=== PATIENT | female | born 1970 | race Caucasian/White ===

== ENCOUNTER 2024-03-01 08:38 | Outpatient (AMB) | payer OTHER, SELFPAY ==
--- NOTE | 2024-03-01 08:44 | MHC.PC.OV ---
Vital Signs 03/01/24 08:54 Height 4 ft 10.74 in Weight 145 lb 6 oz BMI 29.6 BP 98/62 Blood Pressure Location Lt brachial Position Sitting Respiration 14 Pulse 70 Pulse Source Pulse Oximeter Temp 98.1 F Temp Source Oral Pulse Oximetry (%) 95 Oxygen Delivery Method Room Air Intake Visit Reasons: Establish Care transfer from [facility] Intake Note: New patient visit Medication List - Last Reconciled 03/01/24 by Kerri Mcrae MD pravastatin 20 mg PO DAILY Tobacco use date assessed: 03/01/24 Dental Screening Dental Screen Date: 03/01/24 Did you have a dental visit in the last 12 months?: Yes Did you have a dental problem in the last 6 months where you did not have access to dental care?: No Was dental information given to patient?: Patient has dentist HPI HPI Comments History of Present Illness Details This is a 53 year old female with a past medical history of back pain, hyperlipidemia, prediabetes, seasonal allergies presenting for follow up CV: On pravastatin. Huge improvement in LDL on med, now 144. No chest pain, exertional dyspnea Prediabetes: Last A1C 5.9%. Mammo UTD-[place], thinks she is almost due Colonoscopy 2 years ago ROS CONSTITUTIONAL: Denies weight loss, fever and chills. HEENT: Denies changes in vision and hearing. RESPIRATORY: Denies SOB and cough. CV: Denies palpitations and CP GI: Denies abdominal pain, nausea, vomiting and diarrhea. : Denies dysuria and urinary frequency. MSK: Denies new myalgia and joint pain. SKIN: Denies rash and pruritus. NEUROLOGICAL: Denies headache PSYCHIATRIC: Denies recent changes in mood. PHYSICAL EXAM: GENERAL: Alert and oriented x 3. NAD EYES: EOMI. Anicteric. HENT: Moist mucous membranes. No scleral icterus. No cervical lymphadenopathy. LUNGS: Clear to auscultation bilaterally. CARDIOVASCULAR: Regular rate and rhythm. No murmur. No JVD. ABDOMEN: Soft, non-tender +bs EXTREMITIES: No edema. Non-tender. SKIN: No rashes or lesions. Warm. NEUROLOGIC: No focal neurological deficits. CN II-XII grossly intact PSYCHIATRIC: Cooperative. Appropriate mood and affect [facility] Medical History (Updated 03/01/24 @ 09:39 by Kerri Mcrae MD) History of mammogram Seasonal allergies Menopausal problem Low back pain High blood cholesterol Fatigue Elevated glucose Bilateral wrist pain Arthritis Surgical History (Updated 03/01/24 @ 08:50 by Bernadine Clements CMA) H/O tubal ligation H/O colonoscopy Family History (Updated 03/01/24 @ 08:59 by Bernadine Clements CMA) Mother Diabetes Hypercholesteremia Father Prostate cancer Cancer of stomach Pancreatic cancer Social History (Updated 03/01/24 @ 08:57 by Bernadine Clements CMA) Housing: House Patient Tobacco Use Status: Former Tobacco user Years Smoked: Highschool years e-Cigarette/Vaping Use: Never Used Second Hand Smoke Exposure: No service: No Current occupational status: employed 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 1. Little interest or pleasure in doing things: not at all 2. Feeling down, depressed, or hopeless: not at all 3. Trouble falling or staying asleep, or sleeping too much: not at all 4. Feeling tired or having little energy: several days 5. Poor appetite or overeating: not at all 6. Feeling bad about yourself - or that you are a failure or have let yourself or your family down: not at all 7. Trouble concentrating on things, such as reading the newspaper or watching television: not at all 8. Moving or speaking so slowly that other people could have noticed. Or the opposite - being so fidgety or restless that you have been moving around a lot more than usual: not at all 9. Thoughts that you would be better off or of hurting yourself in some way: not at all Total score: 1 Depression Screening Interpretation: Negative Depression Screening Done: Yes 28316 - PHQ-9 Billing: Yes Source: Developed by Drs. Mega Singleton, Sonia Knowles, Jadiel Harrington and colleagues, with an educational christiano from [employer]. AUDIT C Alcohol Use Questionnaire (AUDIT-C) 1. How often do you have a drink containing alcohol?: 2-3 times a week 2. How many drinks containing alcohol do you have on a typical day when you are drinking?: 1 or 2 3. How often do you have six or more drinks on one occasion?: Never Total Score: 3 Physical exam (Primary Care) Vital Signs: Last Vital Signs Temp 98.1 F 03/01/24 08:54 Pulse 70 03/01/24 08:54 Resp 14 03/01/24 08:54 BP 98/62 03/01/24 08:54 Pulse Ox 95 03/01/24 08:54 Oxygen Delivery Method Room Air 03/01/24 08:54 BMI result Body Mass Index 29.6 Tobacco/Smoking Status: Tobacco use Status Tobacco use date assessed 03/01/24 03/01/24 09:00 Patient Tobacco Use Status Former Tobacco user 03/01/24 09:00 e-Cigarette/Vaping Use Never Used 03/01/24 09:00 Depression Screening Interpretation: Negative Assessment and Plan Assessment & Plan (1) Elevated glucose: Code(s): R73.09 - Other abnormal glucose Plan: Monitor labs. (2) High blood cholesterol: Code(s): E78.00 - Pure hypercholesterolemia, unspecified Plan: Much improved LDL. Will keep statin at current dose. Continue pravastatin (3) Low back pain: Code(s): M54.50 - Low back pain, unspecified Qualifiers: Chronicity: chronic Back pain laterality: bilateral Sciatica presence: unspecified whether sciatica present Qualified Code(s): M54.50 - Low back pain, unspecified; G89.29 - Other chronic pain (4) Arthritis: Code(s): M19.90 - Unspecified osteoarthritis, unspecified site (5) Gallbladder polyp: Code(s): K82.4 - Cholesterolosis of gallbladder Plan: u/s ordered for follow up Orders: Orders US abdomen limited Today K82.4 - Cholesterolosis of gallbladder MM screening mammo BI Today Z12.31 - Encounter for screening mammogram for malignant neoplasm of breast Coding Level of Care Code Tele Est Pt Level 4 (52066) Complex EM visit Add On G2211 Diagnoses Elevated glucose R73.09 High blood cholesterol E78.00 Chronic bilateral low back pain, unspecified whether sciatica present M54.50; G89.29 Chronicity: chronic Back pain laterality: bilateral Sciatica presence: unspecified whether sciatica present Arthritis M19.90 Gallbladder polyp K82.4
[2024-03-01 08:54] VITALS: BP 98/62; PULSE 70; RESP 14; TEMP 36.7; O2SAT 95; BMI 29.6
== END 2024-03-01 09:36 | disposition home or self-care (01) ==
PROVIDERS: Visit Provider Internal Medicine
DX: R73.09 Other abnormal glucose (principal); E78.00 Pure hypercholesterolemia, unspecified; M54.50 Low back pain, unspecified; G89.29 Other chronic pain; M19.90 Unspecified osteoarthritis, unspecified site; K82.4 Cholesterolosis of gallbladder
CPT/HCPCS: 99214; G2211

== ENCOUNTER 2024-05-24 08:55 | Outpatient (REF) | payer OTHER, SELFPAY ==
--- NOTE | ~2024-05-24 | US_ITS ---
EXAMINATION: US ABDOMEN LIMITED CLINICAL INFORMATION: Cholesterolosis of gallbladder. COMPARISON: None available. TECHNIQUE: Real-time imaging of the right upper quadrant abdominal viscera. FINDINGS: PANCREAS: Pancreatic echotexture is heterogeneous. No focal mass or ductal dilatation is seen. There is no peripancreatic fluid collection. LIVER: There is hepatomegaly, with a longitudinal span of 19.4 cm. The liver contour is normal. There is diffuse increased liver parenchymal echogenicity, with pericholecystic sparing. No focal hepatic lesion. There is no intrahepatic biliary duct dilatation seen. GALLBLADDER: Normal. The gallbladder is physiologically distended without evidence of stones, sludge, polyps, wall thickening or pericholecystic fluid. COMMON BILE DUCT: Normal in caliber measuring 0.5 cm in diameter. RIGHT KIDNEY: Normal. No hydronephrosis. No renal calculi or focal parenchymal lesions. The kidney measures 11.6 cm in maximum dimension. FREE FLUID: None. US/US abdomen limited IMPRESSION: 1. There is hepatomegaly. 2. There is generalized increase in hepatic echotexture, consistent with fatty infiltration or hepatocellular disease. Please correlate clinically. Characteristic pericholecystic sparing favors fatty infiltration. No focal hepatic mass or intrahepatic biliary dilatation is seen. Electronically signed by: Arjun Porter MD 05/27/2024 01:46 PM EDT
== END 2024-05-24 08:56 | disposition home or self-care (01) ==
LOC: HO.US 08:55
PROVIDERS: PCP Internal Medicine; Visit Provider Internal Medicine
DX: K82.4 Cholesterolosis of gallbladder (principal)
CPT/HCPCS: 76705

== ENCOUNTER 2024-09-17 13:59 | Outpatient (AMB) | payer OTHER, SELFPAY ==
--- NOTE | 2024-09-17 14:07 | A.OFFPC_ITS ---
Vital Signs 09/17/24 14:11 Height 4 ft 10.74 in Weight 146 lb 6 oz BMI 29.8 BP 106/68 Blood Pressure Location Rt brachial Position Sitting Pulse 76 Pulse Source Pulse Oximeter Pulse Oximetry (%) 96 Oxygen Delivery Method Room Air Intake Visit Reasons: annual Intake Note: Physical Family Life Counselor Required: No Allergies No Known Allergies Allergy (Verified 09/17/24 14:11) Tobacco use date assessed: 09/17/24 Dental Screening Dental Screen Date: 03/01/24 HPI HPI Comments History of Present Illness Details This is a 54 year old female with a past medical history of back pain, hyperlipidemia, prediabetes, seasonal allergies presenting for annual exam CV: On pravastatin. No chest pain, exertional dyspnea Prediabetes: Last A1C 5.9%. Mammo UTD-Fall 2023 Colonoscopy 3 years ago Flu vaccine-declines ROS CONSTITUTIONAL: Denies weight loss, fever and chills. HEENT: Denies changes in vision and hearing. RESPIRATORY: Denies SOB and cough. CV: Denies palpitations and CP GI: Denies abdominal pain, nausea, vomiting and diarrhea. : Denies dysuria and urinary frequency. MSK: Denies new myalgia and joint pain. SKIN: Denies rash and pruritus. NEUROLOGICAL: Denies headache PSYCHIATRIC: Denies recent changes in mood. PHYSICAL EXAM: GENERAL: Alert and oriented x 3. NAD EYES: EOMI. Anicteric. HENT: Moist mucous membranes. No scleral icterus. No cervical lymphadenopathy. LUNGS: Clear to auscultation bilaterally. CARDIOVASCULAR: Regular rate and rhythm. No murmur. No JVD. ABDOMEN: Soft, non-tender +bs EXTREMITIES: No edema. Non-tender. SKIN: No rashes or lesions. Warm. NEUROLOGIC: No focal neurological deficits. CN II-XII grossly intact PSYCHIATRIC: Cooperative. Appropriate mood and affect [facility] Medical History History of mammogram Seasonal allergies Menopausal problem Low back pain High blood cholesterol Fatigue Elevated glucose Bilateral wrist pain Arthritis Surgical History H/O tubal ligation H/O colonoscopy Family History Mother Diabetes Hypercholesteremia Father Prostate cancer Cancer of stomach Pancreatic cancer Social History Housing: House Alcohol intake: former Comment: quit one month ago Patient Tobacco Use Status: Former Tobacco user Years Smoked: Highschool years e-Cigarette/Vaping Use: Never Used Second Hand Smoke Exposure: No service: No Current occupational status: employed 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, 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 Current occupational exposures/hazards: Yes (Hair chemicals) Cognitive needs: No Hearing needs: No Vision needs: No Physical exam (Primary Care) Vital Signs: Last Vital Signs Pulse 76 09/17/24 14:11 BP 106/68 09/17/24 14:11 Pulse Ox 96 09/17/24 14:11 Oxygen Delivery Method Room Air 09/17/24 14:11 BMI result Body Mass Index 29.8 Tobacco/Smoking Status: Tobacco use Status Tobacco use date assessed 09/17/24 09/17/24 14:15 Patient Tobacco Use Status Former Tobacco user 09/17/24 14:15 e-Cigarette/Vaping Use Never Used 09/17/24 14:15 Coding Level of Care Code Est Pt Prev Care 40-64y(01083) Diagnoses Physical exam Z00.00 Hepatic steatosis K76.0 Elevated glucose R73.09 Assessment & Plan Assessment & Plan (1) Physical exam: Code(s): Z00.00 - Encounter for general adult medical examination without abnormal findings Category: Medical Plan: Preventive measures for age discussed Past medical, surgical, social history, chronic conditions reviewed (2) Hepatic steatosis: Code(s): K76.0 - Fatty (change of) liver, not elsewhere classified Category: Medical Plan: referral is pending to gastroenterology (3) Elevated glucose: Code(s): R73.09 - Other abnormal glucose Category: Medical Plan: Monitor A1C. Pursuing diet and exercise. Orders: Orders Comprehensive Met. Panel 09/17/24 E78.00 - Pure hypercholesterolemia, unspecified, M19.90 - Unspecified osteoarthritis, unspecified site, R73.09 - Other abnormal glucose, Z00.00 - Encounter for general adult medical examination without abnormal findings Hemoglobin A1c 09/17/24 E78.00 - Pure hypercholesterolemia, unspecified, M19.90 - Unspecified osteoarthritis, unspecified site, R73.09 - Other abnormal glucose, Z00.00 - Encounter for general adult medical examination without abnormal findings Complete Blood Count Auto Diff 09/17/24 E78.00 - Pure hypercholesterolemia, unspecified, M19.90 - Unspecified osteoarthritis, unspecified site, R73.09 - Other abnormal glucose, Z00.00 - Encounter for general adult medical examination without abnormal findings Lipid Panel 09/17/24 E78.00 - Pure hypercholesterolemia, unspecified, M19.90 - Unspecified osteoarthritis, unspecified site, R73.09 - Other abnormal glucose, Z00.00 - Encounter for general adult medical examination without abnormal findings TSH reflex Free T4 09/17/24 E78.00 - Pure hypercholesterolemia, unspecified, M19.90 - Unspecified osteoarthritis, unspecified site, R73.09 - Other abnormal glucose, Z00.00 - Encounter for general adult medical examination without abnormal findings
[2024-09-17 14:11] VITALS: BP 106/68; PULSE 76; O2SAT 96; BMI 29.8
== END 2024-09-17 14:37 | disposition home or self-care (01) ==
PROVIDERS: PCP Internal Medicine; Visit Provider Internal Medicine
DX: Z00.00 Encounter for general adult medical examination without abnormal findings (principal); K76.0 Fatty (change of) liver, not elsewhere classified; R73.09 Other abnormal glucose

== ENCOUNTER → 2024-09-17 13:59 | Outpatient (BNVA) | payer OTHER, SELFPAY | PROVIDERS: PCP Internal Medicine; Visit Provider Internal Medicine | DX: Z00.00 Encounter for general adult medical examination without abnormal findings (principal); K76.0 Fatty (change of) liver, not elsewhere classified; R73.09 Other abnormal glucose; E78.5 Hyperlipidemia, unspecified; Z79.899 Other long term (current) drug therapy | CPT/HCPCS: 99396 ==

== ENCOUNTER 2024-09-17 14:40 | Outpatient (REF) | payer OTHER, SELFPAY ==
[2024-09-17 17:33] LABS: MANUAL DIFF FLAG NO
[2024-09-17 17:37] LABS: Basophils Absolute Auto 0.1 X10*3/uL (0.0-0.2); Basophils Percent Auto 0.8 % (0-2); Eosinophils Absolute Auto 0.1 X10*3/uL (0.0-0.4); Eosinophils Percent Auto 1.9 % (0-4); Hematocrit 37.2 % (37.0-47.0); Hemoglobin 12.9 g/dl (12.0-16.0); Imm Gran Abs Auto 0.02 X10*3/uL (0.00-0.03); Imm Gran Pct Auto 0.3 % (0.0-0.4); Lymphocytes Absolute Auto 2.4 X10*3/uL (1.2-4.9); Lymphocytes Percent Auto 37.4 % (20-40); Mean Corpuscular HGB Conc 34.7 g/dl (31.0-35.0); Mean Corpuscular Hemoglobin 30.6 pg (27.0-33.0); Mean Corpuscular Volume 88.4 fL (80.0-98.0); Mean Platelet Volume 9.4 fL (9.4-12.3); Monocytes Absolute Auto 0.4 X10*3/uL (0.1-1.2); Neutrophils Absolute Auto 3.4 x10*3/uL (2.0-8.3); Neutrophils Percent Auto 53.6 % (45-73); Platelet Count 234 X10*3/uL (160-400); Red Blood Count 4.21 X10*6/uL (4.20-5.50); Red Cell Distribution Width 12.2 % (11.0-16.0); White Blood Count 6.3 X10*3/uL (4.8-10.8)
[2024-09-17 17:43] LABS: Estimated Average Glucose 120 mg/dL; Hemoglobin A1C 134.7307 umol/L; Hemoglobin A1c % 5.8 % (<6.0); Total Hemoglobin (HGBA1C) 3369.8374 umol/L
[2024-09-17 18:08] LABS: Alanine Aminotransferase 70 U/L (0-31); Albumin Level 4.4 g/dL (3.5-5.0); Alkaline Phosphatase 43 U/L (39-117); Anion Gap 11 (12-20); Aspartate Amino Transferase 38 U/L (5-31); Bilirubin Total 0.3 mg/dL (0.0-1.0); Blood Urea Nitrogen 12 mg/dL (9-16); Calcium 9.6 mg/dL (8.4-10.2); Carbon Dioxide 28 mmol/L (22-29); Chloride 106 mmol/L (96-108); Cholesterol 228 mg/dL (<200); Estimated Glomerular Filt Rate > 60; Glucose Random 139 mg/dL (60-115); HDL Cholesterol 44 mg/dL (>40); LDL Cholesterol Calculated 110 mg/dL (<100); Potassium 3.7 mmol/L (3.3-5.1); Sodium 141 mmol/L (135-145); Total Protein 7.4 g/dL (6.5-8.0); Triglycerides 370 mg/dL (<150)
[2024-09-17 18:17] LABS: TSH reflex Free T4 1.69 uIU/mL (0.32-4.0)
== END 2024-09-17 14:41 | disposition home or self-care (01) ==
LOC: HO.WFDLDS 14:40
PROVIDERS: Visit Provider Internal Medicine
DX: Z00.00 Encounter for general adult medical examination without abnormal findings (principal); R73.09 Other abnormal glucose; E78.00 Pure hypercholesterolemia, unspecified; M19.90 Unspecified osteoarthritis, unspecified site
CPT/HCPCS: 36415; 80053; 80061; 83036; 84443; 85025

== ENCOUNTER 2024-12-13 10:28 | Outpatient (AMB) | payer OTHER, SELFPAY ==
[2024-12-13 10:50] VITALS: BMI 29.6
--- NOTE | 2024-12-13 10:50 | A.OFFVIS_ITS ---
VS Expanded 12/13/24 10:50 12/13/24 10:57 Height 4 ft 10.74 in 4 ft 10 in Weight 145 lb 8.081 oz 145 lb BMI 29.6 30.3 Intake Visit Reasons: Fatty Liver Allergies No Known Allergies Allergy (Verified 09/17/24 14:11) Nutrition Presentation Details: Pt presents for MNT for Fatty Liver , pure hypercholesterolemia food frequency fruits: 1-3 fish : 1-2 times/wk fluids: water mostly etoh: 1 /wk smoking: denies eating out >3 x/wk physical activity --- BS Monitoring Most Recent Diabetes Results: Cholesterol 228 mg/dL (<200) H 09/17/24 HDL Cholesterol 44 mg/dL (>40) 09/17/24 Triglycerides 370 mg/dL (<150) H 09/17/24 Creatinine 0.75 mg/dL (0.5-1.4) 09/17/24 Blood Urea Nitrogen 12 mg/dL (9-16) 09/17/24 Sodium 141 mmol/L (135-145) 09/17/24 Potassium 3.7 mmol/L (3.3-5.1) 09/17/24 Chloride 106 mmol/L (96-108) 09/17/24 Carbon Dioxide 28 mmol/L (22-29) 09/17/24 Calcium 9.6 mg/dL (8.4-10.2) 09/17/24 AST 38 U/L (5-31) H 09/17/24 ALT 70 U/L (0-31) H 09/17/24 Total Protein 7.4 g/dL (6.5-8.0) 09/17/24 Albumin 4.4 g/dL (3.5-5.0) 09/17/24 IPI-Ngfvabe-Yy.Jeor Equation Height: 4 ft 10 in Weight: 145 lb Resting Metabolic Rate: 1141.28 Calculated Activity Level: Sedentary Calories Needed to Maintain Weight: 1369.54 Diagnosis Nutrition problem #1: altered nutrition labs As related to (etiology) #1: lack of nutrit education As evidenced by (sign/symptom) #1: abnormal serum lipids [facility] Medical History History of mammogram Seasonal allergies Menopausal problem Low back pain High blood cholesterol Fatigue Elevated glucose Bilateral wrist pain Arthritis Surgical History H/O tubal ligation H/O colonoscopy Family History Mother Diabetes Hypercholesteremia Father Prostate cancer Cancer of stomach Pancreatic cancer Social History Housing: House Alcohol intake: former Comment: quit one month ago Patient Tobacco Use Status: Former Tobacco user Years Smoked: Highschool years e-Cigarette/Vaping Use: Never Used Second Hand Smoke Exposure: No service: No Current occupational status: employed 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, 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 Current occupational exposures/hazards: Yes (Hair chemicals) Cognitive needs: No Hearing needs: No Vision needs: No Assessment & Plan Assessment & Plan (1) Elevated glucose: Comment: FAtty liver and elevated Chol Code(s): R73.09 - Other abnormal glucose Category: Medical Plan: Wt: 66 Kg (12/31 ) Est kcal needs as per MSJ: 1400 (40% carb, 30% protein/fat) Est fluid needs as per 25-30 ml/d: 2000 Est prot per day as per 1 g/kg bw: 65-80 Recommend fiber intake : 8-10 g per day and gradually increase to 25-28 g per day for women and 35-38 g for men or as tolerated Recommend sodium intake per day : less than 2000 mg Educated patient on: ( R = reviewed V = verbalizes understanding N/R = needs review N/A = not applicable * Food sources of carbohydrate, adequate serving sizes and its role in various health conditions: R V N/R * Differences between complex carbohydrates a simple carbohydrates, role of fiber in diet: R * Lean protein sources of foods: R V NR * Differences between types of fats and role in diet (mono on saturated fat fatty acids, saturated fatty acids, trans fats): R basic * Food sources of sodium in salt and healthy modifications for heart health in kidney health: R V R/V * Vitamins and minerals: R V N/R * Healthy plate method concept: R V N/R * Physical activity: Benefits a precaution: R V N/R * Hypoglycemia protocol (rule of 15): R V N/R * Dietary prevention of Hyperglycemia: R Patient Instructions: Work on reducing fats and sugars in your diet 45 g of carbs per meal and 0-20 g as snack 2 a day Have yogurt with fruit as snack in between meals. see meal ideas/snack ideas Coding Level of Care Code Nutr Indiv Intake (51022) Diagnoses Elevated glucose R73.09 Time Spent (min) 30
[2024-12-13 10:57] VITALS: BMI 30.3
== END 2024-12-13 11:18 | disposition home or self-care (01) ==
LOC: HO.ENCR 10:28
PROVIDERS: PCP Internal Medicine; Visit Provider Dietitian, Registered
DX: R73.09 Other abnormal glucose (principal)

== ENCOUNTER → 2024-12-13 10:28 | Outpatient (BNVA) | payer OTHER, SELFPAY | PROVIDERS: PCP Internal Medicine; Visit Provider Dietitian, Registered | DX: R73.09 Other abnormal glucose (principal); Z71.3 Dietary counseling and surveillance | CPT/HCPCS: 97802 ==